=== PATIENT | female | born 1990 | race Caucasian/White ===

== ENCOUNTER 2022-05-14 14:29 | Emergency (ER) | payer OTHER ==
[~2022-05-14 14:29] MED LIST: COLACE 100MG C100 MG PO; FLEXERIL 10 MG10 MG PO; IBUPROFEN600 MG PO; LODINE CAP 300300 MG PO; SUBUTEX 8 MG TAB8 MG SL; TUMS ULTRA400 MG PO; TYLENOL 500 MG500 MG PO; ZANTAC150 MG PO; ZOFRAN ODT 4 MG4 MG PO; ZOFRAN4 MG PO
[2022-05-14 15:21] LABS: HEMOGLOBIN 13.2 gm/dl (12.3-15.3); RED BLOOD COUNT 4.44 M/UL (4.00-5.10); WHITE BLOOD COUNT 11.2 K/UL (4.5-11.0)
[2022-05-14 15:41] LABS: BUN/CREATININE RATIO 22 (0-10)
== END 2022-05-14 18:02 | disposition home or self-care (01) ==
LOC: ER1 14:29
PROVIDERS: Family Medicine
DX: R07.9 Chest pain, unspecified (principal); F17.200 Nicotine dependence, unspecified, uncomplicated; Z88.1 Allergy status to other antibiotic agents; Z88.8 Allergy status to other drugs, medicaments and biological substances; Z88.0 Allergy status to penicillin
CPT/HCPCS: 80053; 81001; 82550; 82553; 84484; 84702; 85025; 87077; 87086; 87186; 93005; 99285